=== PATIENT | female | born 1995 | race Caucasian/White ===

== ENCOUNTER 2018-01-15 07:58 | Emergency (ER) | payer BC, OTHER ==
[2018-01-15 08:05] VITALS: BP 116/72; PULSE 66; TEMP 98.1; BMI 23.4
--- NOTE | 2018-01-15 08:56 | PDOC ---
History of Present Illness - General Chief Complaint: Cold Symptoms Stated Complaint: DIFFICULTY BREATHING,COUGH Time Seen by Provider: 01/15/18 08:25 - History of Present Illness Initial Comments: 01/15/18 08:41 CHIEF COMPLAINT: cough HISTORY OF PRESENT ILLNESS: 22 yo F with no significant PMH presents to ED with cough, congestion, runny nose x 5 days. Patient states she has a history of "sinus problems" and has had pneumonia in the past. Patient denies any fever, vomiting or diarrhea, but reports "coughing up a lot of dark phlegm." No recent travel or sick contacts. PAST MEDICAL HISTORY: Denies past medical history FAMILY HISTORY: Denies SOCIAL HISTORY:Denies tobacco, alcohol, illicit drug use. SURGICAL HISTORY: Denies ALLERGIES: No known drug allergies REVIEW OF SYSTEMS as per HPI PHYSICAL EXAM General Appearance: Well-appearing, appropriately dressed. No apparent distress. HEENT: Erythematous oropharynx. EOMI, PERRLA, normal voice, TMs normal. No conjunctival pallor. No photophobia, scleral icterus. Neck: Supple. Trachea midline. No tenderness, rigidity, carotid bruit, stridor , lymphadenopathy, or thyromegaly. Respiratory/Chest: Lungs CTAB. Cardiovascular: RRR. S1, S2. Gastrointestinal/Abdominal: Normal bowel sounds. Abdomen soft, non-distended. No tenderness or rebound tenderness. No organomegaly, pulsatile mass, guarding , hernia, hepatomegaly, splenomegaly. Musculoskeletal/Extremities: Normal inspection. FROM of all extremities, normal capillary refill. Pelvis Stable. No CVA tenderness. No tenderness to extremities, pedal edema, swelling, erythema or deformity. Integumentary: Appropriate color, dry, warm. No cyanosis, erythema, jaundice or rash Neurologic: plating foreman II-XII intact. Fully oriented, alert. Appropriate mood/affect. Motor strength 5/5. No appreciable EOM palsy, facial droop or sensory deficit. Past History - Past Medical History Allergies/Adverse Reactions: Allergies Allergy/AdvReac Type Severity Reaction Status Date / Time No Known Allergies Allergy Verified 01/15/18 08:01 Home Medications: Ambulatory Orders Azithromycin [Zithromax 250mg Tablets -] 250 mg PO UTDICT #6 tab 01/15/18 Benzonatate [Tessalon Pearls -] 100 mg PO TID PRN #21 capsule 03/02/18 Pseudoephedrine HCl [Pseudoephedrine ER] 120 mg PO BID PRN #14 tablet.er COPD: No DVT: No Dementia: No - Surgical History Abdominal Surgery: No Cardiac Surgery: No - Immunization History Immunization Up to Date: Yes - Suicide/Smoking/Psychosocial Hx Smoking History: Never smoked Number of Cigarettes Smoked Daily: 3 Information on smoking cessation initiated: No Hx Alcohol Use: No Drug/Substance Use Hx: No Substance Use Type: None *Physical Exam - Vital Signs Last Vital Signs Temp Pulse Resp BP Pulse Ox 98.1 F 66 17 116/72 100 01/15/18 08:02 01/15/18 08:02 01/15/18 08:02 01/15/18 08:02 01/15/18 08:02 Medical Decision Making - Medical Decision Making 01/15/18 08:44 22 yo F with no significant PMH presents to ED with cough, congestion, runny nose x 5 days. *DC/Admit/Observation/Transfer Diagnosis at time of Disposition: Bronchitis - Discharge Dispostion Disposition: HOME Condition at time of disposition: Stable Admit: No - Prescriptions Prescriptions: Azithromycin [Zithromax 250mg Tablets -] 250 mg PO UTDICT #6 tab Benzonatate [Tessalon Pearls -] 100 mg PO TID PRN #21 capsule PRN Reason: Cough Pseudoephedrine HCl [Pseudoephedrine ER] 120 mg PO BID PRN #14 tablet.er PRN Reason: congestion - Referrals - Patient Instructions Printed Discharge Instructions: DI for Acute Bronchitis Additional Instructions: Please take medications as prescribed. Follow up with your primary care doctor if symptoms persist past 5-7 days. If you develop any fever, vomiting, diarrhea , or any new or worsening symptoms, please return to the ER. - Post Discharge Activity
== END 2018-01-15 09:01 | disposition home or self-care (01) ==
LOC: JERFT 07:58
DX: J40 Bronchitis, not specified as acute or chronic (principal)
CPT/HCPCS: 99281-25

== ENCOUNTER 2018-03-17 20:37 | Emergency (ER) | payer OTHER ==
--- NOTE | 2018-03-17 20:48 | PDOC ---
Rapid Medical Evaluation Chief Complaint: Pain Time Seen by Provider: 03/17/18 20:47 Medical Evaluation: Allergies Allergy/AdvReac Type Severity Reaction Status Date / Time No Known Allergies Allergy Verified 01/15/18 08:01 c/o " i am having pain by my pancreas. " left lower quadrant pain x 1 day. pain has been on and off x 1 year. last BM soft stool yesterday. LMP . O: patient alert ox3. A; left lower quadrant abdominal pain P: ua, urine , Abdominal xray patient to the ER for further management. 03/17/18 20:52
[2018-03-17 20:55] VITALS: BP 112/63; PULSE 71; TEMP 97.3; BMI 23.4
--- NOTE | 2018-03-17 22:02 | PDOC ---
History of Present Illness - General History Source: Patient, Old Records Exam Limitations: No Limitations - History of Present Illness Initial Comments: 03/17/18 22:43 The patient is a 22 year old female with no significant past medical history who presents to the emergency department with left lower quadrant pain for 2 days. The patient describes her pain as intermittent without alleviating or exacerbating factors. She denies any vaginal bleeding, vaginal discharge, or dysuria. The patients last menstrual period was normal. She states that she is not . <Jose Renteria - Last Filed: 03/17/18 22:43> - General History Source: Patient <Antoni Quarles - Last Filed: 03/18/18 19:55> - General Chief Complaint: Pain Stated Complaint: ABDOMINAL PAIN Time Seen by Provider: 03/17/18 20:47 Past History <MyraJose - Last Filed: 03/17/18 22:43> - Past Medical History COPD: No DVT: No Dementia: No - Surgical History Abdominal Surgery: No Cardiac Surgery: No - Immunization History Immunization Up to Date: Yes - Suicide/Smoking/Psychosocial Hx Smoking History: Never smoked Have you smoked in the past 12 months: No Number of Cigarettes Smoked Daily: 3 Information on smoking cessation initiated: No Hx Alcohol Use: No Drug/Substance Use Hx: Yes Substance Use Type: None <WilliamAria woodan - Last Filed: 03/18/18 19:55> - Past Medical History Allergies/Adverse Reactions: Allergies Allergy/AdvReac Type Severity Reaction Status Date / Time No Known Allergies Allergy Verified 01/15/18 08:01 Home Medications: Ambulatory Orders Azithromycin [Zithromax 250mg Tablets -] 250 mg PO UTDICT #6 tab 01/15/18 Benzonatate [Tessalon Pearls -] 100 mg PO TID PRN #21 capsule 01/15/18 Pseudoephedrine HCl [Pseudoephedrine ER] 120 mg PO BID PRN #14 tablet.er Review of Systems - Review of Systems Able to Perform ROS?: Yes Comments:: 03/17/18 22:44 CONSTITUTIONAL: Absent: fever, no chills, no fatigue EYES: Absent: visual changes ENT: Absent: ear pain, no sore throat CARDIOVASCULAR: Absent: chest pain, no palpitations RESPIRATORY: Absent: cough, no SOB GI: (+) Left lower quadrant pain Absent: no nausea, no vomiting, no constipation, no diarrhea GENITOURINARY: Absent: dysuria, no frequency, no hematuria MUSCULOSKELETAL: Absent: back pain, no arthralgia, no myalgia SKIN: Absent: rash <Jose Renteria - Last Filed: 03/17/18 22:43> *Physical Exam - Vital Signs Last Vital Signs Temp Pulse Resp BP Pulse Ox 97.3 F L 71 18 112/63 100 03/17/18 20:49 03/17/18 20:49 03/17/18 20:49 03/17/18 20:49 03/17/18 20:49 - Physical Exam Comments: 03/17/18 22:44 GENERAL: Well-appearing, well-nourished. No apparent distress. HEENT: Normocephalic, atraumatic. PERRL, EOM intact. CARDIOVASCULAR: Normal S1, S2. Regular rate and rhythm. PULMONARY: Clear to auscultation bilaterally. ABDOMEN: Soft, non-distended, non-tender. EXTREMITIES: Normal ROM in all four extremities. No gross deformities. SKIN: Warm, dry. No rash NEUROLOGICAL: No focal neurological deficits. <Jose Renteria - Last Filed: 03/17/18 22:43> - Vital Signs Last Vital Signs Temp Pulse Resp BP Pulse Ox 97.3 F L 71 18 112/63 100 03/17/18 20:49 03/17/18 20:49 03/17/18 20:49 03/17/18 20:49 03/17/18 20:49 <Antoni Quarles - Last Filed: 03/18/18 19:55> ED Treatment Course - ADDITIONAL ORDERS Additional order review: Laboratory Results 03/17/18 22:00 Urine Color Ltyellow Urine Appearance Clear Urine pH 5.0 Ur Specific [place] 1.025 Urine Protein Negative Urine Glucose (UA) Negative Urine Ketones Negative Urine Blood Negative Urine Nitrite Negative Urine Bilirubin Negative Urine Urobilinogen Negative Ur Leukocyte Esterase Negative Urine HCG, Qual Negative <Jose Renteria - Last Filed: 03/17/18 22:43> - RADIOLOGY Radiology Studies Ordered: Category Date Time Status TRANSVAGINAL ULTRASOUND US [US] Stat Ultrasound 03/17/18 22:01 Ordered <Antoni Quarles - Last Filed: 03/18/18 19:55> Medical Decision Making - Medical Decision Making 03/18/18 19:55 Dr. Quarles: The scribe's documentation has been prepared under my direction and personally reviewed by me in its entirery. I confirm that the note above accurately reflects all work, treatment, procedures, and medical decision making performed by me. <Antoni Quarles - Last Filed: 03/18/18 19:55> *DC/Admit/Observation/Transfer - Attestations Scribe Attestion: 03/17/18 22:44 Documentation prepared by Jose Renteria, acting as director medical science for Antoni Quarles DO. <Jose Renteria - Last Filed: 03/17/18 22:43> - Discharge Dispostion Admit: No <Antoni Quarles - Last Filed: 03/18/18 19:55> Diagnosis at time of Disposition: Abdominal pain Qualifiers: Abdominal location: left lower quadrant Qualified Code(s): R10.32 - Left lower quadrant pain - Discharge Dispostion Disposition: HOME Condition at time of disposition: Stable - Referrals Referrals: Nay Ribeiro MD [Staff Physician] - Anna Norton MD [Staff Physician] - - Patient Instructions Printed Discharge Instructions: DI for Abdominal Pain-Adult Additional Instructions: Pleas follow up with your doctor or the doctors provided to you are needed.
[2018-03-17 22:21] LABS: HCG,QUALITATIVE URINE NEGATIVE
[2018-03-17 22:36] LABS: URINE APPEARANCE CLEAR; URINE BILIRUBIN NEGATIVE (<2.0 mg/dL); URINE BLOOD NEGATIVE (NEGATIVE); URINE COLOR LTYELLOW; URINE GLUCOSE (UA) NEGATIVE (NEGATIVE); URINE KETONE NEGATIVE (NEGATIVE); URINE LEUK ESTERASE NEGATIVE (NEGATIVE); URINE NITRITE NEGATIVE (NEGATIVE); URINE PROTEIN NEGATIVE (NEGATIVE); URINE UROBILINOGEN NEGATIVE mg/dL (0.2-1.0)
== END 2018-03-17 23:50 | disposition home or self-care (01) ==
LOC: JER 20:37
DX: R10.32 Left lower quadrant pain (principal)
CPT/HCPCS: 76830-TC; 81003; 84703; 99281-25

== ENCOUNTER 2018-09-20 11:54 | Emergency (ER) | payer BC, OTHER ==
[2018-09-20 12:08] VITALS: TEMP 97.9; BMI 22.4
--- NOTE | 2018-09-20 13:52 | PDOC ---
Attending Attestation - HPI HPI: 09/20/18 17:33 The patient is a 22 year old female,[id number] with no significant past medical history, who presents to the emergency department with bright red bleeding with some clots vaginally and associated left lower left lower abdominal and back pain today after having a positive at-home test 4 days ago. She states she believes herself to be at most 10 days because she had unprotected intercourse 10 days prior to taking the at-home test. She was prompted to take the at-home test because she felt lightheaded and very tired. She states the bleeding is more than a normal period and has remained constant throughout the day. LMP was over 4 weeks ago, but within the past 2 months. The patient denies chest pain, shortness of breath, headache and dizziness. The patient denies fever, chills, nausea, vomit, diarrhea and constipation. The patient denies dysuria, frequency, urgenc. Allergies: NKDA - Physicial Exam PE: 09/20/18 17:33 "GENERAL: The patient is awake, alert, and fully oriented, Nontoxic - in no acute distress. HEAD: Normocephalic, atraumatic. EYES: extraocular movements intact, sclera anicteric, conjunctiva clear. ENT: Normal voice, Moist mucous membranes. NECK: Normal range of motion, supple LUNGS: Breath sounds equal, clear to auscultation bilaterally. No wheezes, no rhonchi, no rales. HEART: Regular rate and rhythm, without murmur, rub or gallop. ABDOMEN: (+) mild lower abdominal discomfort on palpation. Soft, No guarding, no rebound.No CVA tenderness EXTREMITIES: Normal range of motion, no edema. No cyanosis. No erythema, or tenderness. NEUROLOGICAL: No facial assymetry, Normal speech, PSYCH: Normal mood, normal affect. SKIN: Warm, Dry, normal turgor," - Medical Decision Making 09/20/18 17:34 Documentation prepared by Amita Dimas, acting as internist medical doctor md for Elia Martinez MD <Amita Dimas - Last Filed: 09/20/18 17:33> - Resident Resident Name: Srinivasa Hoang - ED Attending Attestation I have performed the following: I have examined & evaluated the patient, The case was reviewed & discussed with the resident, I agree w/resident's findings & plan, Exceptions are as noted - Medical Decision Making 09/20/18 13:50 22y F [id number] presents with lower abd pain and back pain and vaginal spotting, + test 2 days ago. no fever/chills, n/v, diarrhea, cp, sob LMP approx 1 month ago 09/20/18 17:34 beta negative, US negative for IUP will dc with pmd/car repairer fu return precautions were discussed A portion of this note was documented by scribe services under my direction. I have reviewed the details of the note, within reason, and agree with the documentation with the following case summary and management plan written by me <Elia Martinez - Last Filed: 09/20/18 17:37>
[2018-09-20 14:05] LABS: URINE APPEARANCE SLCLOUDY; URINE BILIRUBIN NEGATIVE (<2.0 mg/dL); URINE COLOR LTYELLOW; URINE GLUCOSE (UA) NEGATIVE (NEGATIVE); URINE KETONE NEGATIVE (NEGATIVE); URINE LEUK ESTERASE TRACE (NEGATIVE); URINE NITRITE NEGATIVE (NEGATIVE); URINE PROTEIN NEGATIVE (NEGATIVE); URINE UROBILINOGEN NEGATIVE mg/dL (0.2-1.0)
[2018-09-20 14:07] LABS: BASO % 0.6 % (0-2.0); EOS % 2.9 % (0-4.5); HEMATOCRIT 42.9 % (32.4-45.2); HEMOGLOBIN 14.4 GM/dL (10.7-15.3); LYMPH % 23.2 % (8-40); MCHC 33.5 g/dl (32.0-36.0); MEAN CELL VOLUME 89.5 fl (80-96); MEAN PLT VOLUME 7.7 fl (7.5-11.1); MONO % 5.5 % (3.8-10.2); NEUT % 67.8 % (42.8-82.8); PLATELET COUNT 242 K/MM3 (134-434); RBC 4.79 M/mm3 (3.60-5.2); RDW 12.5 % (11.6-15.6); WHITE BLOOD COUNT 8.9 K/mm3 (4.0-10.0)
[2018-09-20 14:28] LABS: EPI CELLS RARE /HPF (FEW); YEAST RARE
[2018-09-20 14:41] LABS: ALBUMIN 4.3 g/dl (3.4-5.0); ALK PHOS 60 U/L (45-117); ANION GAP 4 MMOL/L (8-16); BILIRUBIN,TOTAL 1.1 mg/dL (0.2-1); BLOOD UREA NITROGEN 15 mg/dL (7-18); CHLORIDE 104 mmol/L (98-107); CO2 30 mmol/L (21-32); CREATININE 0.7 mg/dL (0.55-1.3); GLUCOSE,RANDOM 87 mg/dL (74-106); POTASSIUM 4.3 mmol/L (3.5-5.1); SGOT/AST 16 U/L (15-37); SGPT/ALT 19 U/L (13-61); SODIUM 138 mmol/L (136-145); TOT PROT 7.2 g/dl (6.4-8.2)
--- NOTE | 2018-09-20 15:05 | PDOC ---
History of Present Illness - General Chief Complaint: Vaginal Bleeding Stated Complaint: VAGINAL BLEEDING () Time Seen by Provider: 09/20/18 13:15 Past History - Past Medical History Allergies/Adverse Reactions: Allergies Allergy/AdvReac Type Severity Reaction Status Date / Time No Known Allergies Allergy Verified 09/20/18 12:04 Home Medications: Ambulatory Orders NK [No Known Home Medication] 09/20/18 COPD: No DVT: No Dementia: No - Surgical History Abdominal Surgery: No Cardiac Surgery: No - Immunization History Immunization Up to Date: Yes - Suicide/Smoking/Psychosocial Hx Smoking History: Current some day smoker Have you smoked in the past 12 months: No Number of Cigarettes Smoked Daily: 3 Information on smoking cessation initiated: No Hx Alcohol Use: No Drug/Substance Use Hx: No Substance Use Type: None *Physical Exam - Vital Signs Last Vital Signs Temp Pulse Resp BP Pulse Ox 97.9 F 73 18 115/73 98 09/20/18 12:05 09/20/18 12:05 09/20/18 12:05 09/20/18 12:05 09/20/18 12:05 ED Treatment Course - LABORATORY CBC & Chemistry Diagram: 09/20/18 13:59 09/20/18 13:59 - ADDITIONAL ORDERS Additional order review: Laboratory Results 09/20/18 09/20/18 13:59 13:53 Sodium 138 Potassium 4.3 Chloride 104 Carbon Dioxide 30 Anion Gap 4 L BUN 15 Creatinine 0.7 Creat Clearance w eGFR > 60 Random Glucose 87 Calcium 9.0 Total Bilirubin 1.1 H AST 16 ALT 19 Alkaline Phosphatase 60 Total Protein 7.2 Albumin 4.3 Beta HCG, Quant < 1.0 Urine Color Ltyellow Urine Appearance Slcloudy Urine pH 6.0 Ur Specific [place] 1.008 L Urine Protein Negative Urine Glucose (UA) Negative Urine Ketones Negative Urine Blood 3+ H Urine Nitrite Negative Urine Bilirubin Negative Urine Urobilinogen Negative Ur Leukocyte Esterase Trace Urine WBC (Auto) 91 Urine RBC (Auto) 408 Ur Epithelial Cells Rare Urine Yeast Rare 09/20/18 13:59 RBC 4.79 MCV 89.5 MCHC 33.5 RDW 12.5 MPV 7.7 Neutrophils % 67.8 Lymphocytes % 23.2 Monocytes % 5.5 Eosinophils % 2.9 Basophils % 0.6 - RADIOLOGY Radiology Studies Ordered: Category Date Time Status TRANSVAGINAL US PREG [US] Stat Ultrasound 09/20/18 13:35 Ordered *DC/Admit/Observation/Transfer Diagnosis at time of Disposition: Vaginal bleeding - Discharge Dispostion Disposition: HOME Condition at time of disposition: Good Decision to Admit order: No - Referrals Referrals: Nils Child MD [Staff Physician] - - Patient Instructions Printed Discharge Instructions: DI for Vaginal Bleeding Additional Instructions: Follow up with your OBGYN within the next 3 days. You will need to call to make an appointment. Even though you receive your care through the [place], I have also included a referral to a [facility], Dr. Child. His office number is included in this packet. I have attached copies of your results from today's visit to this packet. Please take these to your follow up appointments so your doctor can review them. Go to the nearest emergency department if your condition worsens or you feel like you need additional emergency evaluation. Watch for signs of heavy vaginal bleeding; this would be about 2 feminine pads per hour. Print Language: MICRONESIAN - Post Discharge Activity
[2018-09-20 18:04] VITALS: BP 111/75; PULSE 75
== END 2018-09-20 18:13 | disposition home or self-care (01) ==
LOC: JER 11:54
DX: N93.8 Other specified abnormal uterine and vaginal bleeding (principal)
CPT/HCPCS: 36415; 76817-TC; 80053; 81003; 81015; 84702; 85025; 86850; 86900; 86901; 87086; 99282-25

== ENCOUNTER 2018-09-22 09:46 | Emergency (ER) | payer BC, OTHER ==
[2018-09-22 09:50] VITALS: BMI 22.4
--- NOTE | 2018-09-22 10:07 | PDOC ---
History of Present Illness - History of Present Illness Initial Comments: 09/22/18 11:22 The patient is a 22-year-old female, , with no significant past medical history presents to the emergency department with back pain, abdominal pain and vaginal bleeding. The patient presents with 2 days of vaginal bleeding with L. lower back and L. lower abdominal pain, without modifying factor that alleviates the pain. The patient reports the pain hasnt changed or worsened acutely, but she had noticed a slight decrease in vaginal bleeding, but shes passing clots. The patient reports following up at the ED on 08/20/2018, for the similar complaint, during the visit blood work and Transvaginal u/s was done. The patient blood work came back negative for HCG, and u/s report read negative intrauterine gestation. The patient reports during the visit she was informed by the doctor that her cervix was open and she may have passed something. The patient reports 2 weeks prior she took 2 home test, which read positive, states at the time she felt and her body was changing states her boyfriend noticed a difference. The patient reports currently, she doesnt feel . The patient reports she was informed in the past that her left ovaries were bigger compared to the R. The patient reports having a workup with an unremarkable result. The patient denies hematuria or dysuria. The patient denies prior live births or surgeries. Denies fever, chills, diarrhea, or constipation LMP: The patient reports at baseline she had irregular menses, states she was late this thursday by 4 weeks. Allergies: NKA Social history: No past or present use of tobacco, alcohol, or recreational drug use. PCP: None reported <Shea Rob - Last Filed: 09/22/18 11:23> - General History Source: Patient Exam Limitations: No Limitations <Shahnaz Lora - Last Filed: 09/22/18 12:13> - General Chief Complaint: Vaginal Sxs Stated Complaint: VAGINAL BLEEDING Time Seen by Provider: 09/22/18 10:05 Past History <hSea Rob - Last Filed: 09/22/18 11:23> - Past Medical History COPD: No CHF: No DVT: No Dementia: No - Surgical History Abdominal Surgery: No Cardiac Surgery: No - Immunization History Immunization Up to Date: Yes - Suicide/Smoking/Psychosocial Hx Smoking History: Never smoked Have you smoked in the past 12 months: No Number of Cigarettes Smoked Daily: 3 Information on smoking cessation initiated: No 'Breaking Loose' booklet given: 09/22/18 Hx Alcohol Use: No Drug/Substance Use Hx: No Substance Use Type: None <Shahnaz Lora - Last Filed: 09/22/18 12:13> - Past Medical History Allergies/Adverse Reactions: Allergies Allergy/AdvReac Type Severity Reaction Status Date / Time No Known Allergies Allergy Verified 09/22/18 09:52 Home Medications: Ambulatory Orders NK [No Known Home Medication] 09/20/18 Review of Systems - Review of Systems Comments:: 09/22/18 11:22 GENERAL/CONSTITUTIONAL: No fever or chills. No weakness. HEAD, EYES, EARS, NOSE AND THROAT: No change in vision. No ear pain or discharge. No sore throat. CARDIOVASCULAR: No chest pain or shortness of breath. RESPIRATORY: No cough, wheezing, or hemoptysis. GASTROINTESTINAL: +LLQ pain. No nausea, vomiting, diarrhea or constipation. GENITOURINARY: +vaginal bleeding. No dysuria, frequency, or change in urination. MUSCULOSKELETAL: +L. lower back pain. No joint or muscle swelling or pain. No neck pain. SKIN: No rash NEUROLOGIC: No headache, vertigo, loss of consciousness, or change in strength/ sensation. ENDOCRINE: No increased thirst. No abnormal weight change. HEMATOLOGIC/LYMPHATIC: No anemia, easy bleeding, or history of blood clots. ALLERGIC/IMMUNOLOGIC: No hives or skin allergy. <Shea Rob - Last Filed: 09/22/18 11:23> *Physical Exam - Vital Signs Last Vital Signs Temp Pulse Resp BP Pulse Ox 97.8 F 64 17 122/76 100 09/22/18 09:47 09/22/18 09:47 09/22/18 09:47 09/22/18 09:47 09/22/18 09:47 - Physical Exam Comments: 09/22/18 10:34 GENERAL: The patient is in no acute distress. HEAD: Normal with no signs of trauma. EYES: PERRLA, EOMI, sclera anicteric, conjunctiva clear. ENT: Ears normal, nares patent, oropharynx clear without exudates. Moist mucous membranes. NECK: Normal range of motion, supple, No JVD, or masses. LUNGS: Breath sounds equal, clear to auscultation bilaterally. No wheezes, and no crackles. HEART:Regular rate and rhythm, normal S1 and S2 without murmur, rub or gallop. ABDOMEN: Soft, nontender, No guarding, no rebound. No masses palpable. No CVA tenderness. EXTREMITIES: Normal range of motion, no edema. No clubbing or cyanosis. No erythema, or tenderness. NEUROLOGICAL: Cranial nerves II through XII grossly intact. Normal speech. No focal neurological deficits. MUSCULOSKELETAL: Back non-tender to palpation, no CVA tenderness SKIN: Warm, Dry, normal turgor, no rashes or lesions noted. <Shea Rob - Last Filed: 09/22/18 11:23> - Vital Signs Last Vital Signs Temp Pulse Resp BP Pulse Ox 97.8 F 64 17 122/76 100 09/22/18 09:47 09/22/18 09:47 09/22/18 09:47 09/22/18 09:47 09/22/18 09:47 <Shahnaz Lora - Last Filed: 09/22/18 12:13> ED Treatment Course - LABORATORY CBC & Chemistry Diagram: 09/22/18 10:52 <Shea Rob - Last Filed: 09/22/18 11:23> - LABORATORY CBC & Chemistry Diagram: 09/22/18 10:52 <Shahnaz Lora - Last Filed: 09/22/18 12:13> Medical Decision Making - Medical Decision Making Mrs. daniels is a 22 year-old 010 who is greater than 4 weeks status post her last menstrual period. She was seen in the emergency department 2 days ago for left lower abdominal pain as well as back pain associated with vaginal bleeding. At that time her hormone test was less than 1. Ultrasound demonstrates note portion, no intrauterine gestational sac. Patient states that her bleeding was significant, very heavy and persisted through yesterday. Today her bleeding has largely improved however she continues to have lower back pain and is very concerned about her left ovary. She returns to the ER for repeat assessment. She has not followed up with [facility]. On examination: Heart is regular, lungs are clear Lower abdomen is mildly tender to palpation, 09/22/18 11:13 Laboratory Tests 09/22/18 09/22/18 10:50 10:52 WBC 6.0 Hgb 14.1 Hct 42.5 Plt Count 239 Urine HCG, Qual Negative 09/22/18 11:19 Laboratory Tests 09/20/18 13:59 Blood Type B POSITIVE 09/22/18 11:19 Laboratory Tests 09/22/18 10:50 Urine Blood Negative Urine Nitrite Negative Ur Leukocyte Esterase Negative 09/22/18 11:46 Laboratory Tests 09/22/18 10:52 Beta HCG, Quant < 1.0 09/22/18 12:10 US negative for IUP, no ovarian masses or torsions Will discharge to home Clinical impression: dysmenorrhea, repeat presentation <Shahnaz Lora - Last Filed: 09/22/18 12:13> *DC/Admit/Observation/Transfer - Attestations Scribe Attestion: 09/22/18 10:43 Documentation prepared by Shea Rob, acting as medical logistics specialist for Shahnaz Lora MD. <Shea Rob - Last Filed: 09/22/18 11:23> - Discharge Dispostion Decision to Admit order: No <Shahnaz Lora - Last Filed: 09/22/18 12:13> Diagnosis at time of Disposition: Dysmenorrhea - Discharge Dispostion Disposition: HOME Condition at time of disposition: Stable - Referrals Referrals: Nils Child MD [Staff Physician] - - Patient Instructions Printed Discharge Instructions: DI for Vaginal Bleeding Additional Instructions: Thank you for coming in to the ER today You must follow up with a drain cleaner within 2-3 days I have given you a referral Please take Aleeve or Motrin 600mg every 8 hours for pain You can also apply a warm compress to your back / abdomen for pain control Please return to the ER with any other concerns or complaints, new symptoms, worsening symptoms. Please return to the ER with vaginal bleeding - saturating 2 pads per hour for 2 hours - Post Discharge Activity Forms/Work/School Notes: Back to Work
[2018-09-22 10:57] LABS: EOS % 2.3 % (0-4.5); HEMATOCRIT 42.5 % (32.4-45.2); HEMOGLOBIN 14.1 GM/dL (10.7-15.3); LYMPH % 28.7 % (8-40); MCHC 33.2 g/dl (32.0-36.0); MEAN CELL VOLUME 90.4 fl (80-96); MEAN PLT VOLUME 7.6 fl (7.5-11.1); MONO % 6.1 % (3.8-10.2); NEUT % 61.9 % (42.8-82.8); PLATELET COUNT 239 K/MM3 (134-434); RDW 12.9 % (11.6-15.6)
[2018-09-22 11:03] LABS: HCG,QUALITATIVE URINE Negative
[2018-09-22 11:08] LABS: URINE APPEARANCE CLEAR; URINE BILIRUBIN NEGATIVE (<2.0 mg/dL); URINE COLOR STRAW; URINE GLUCOSE (UA) NEGATIVE (NEGATIVE); URINE KETONE NEGATIVE (NEGATIVE); URINE LEUK ESTERASE NEGATIVE (NEGATIVE); URINE NITRITE NEGATIVE (NEGATIVE); URINE PROTEIN NEGATIVE (NEGATIVE); URINE UROBILINOGEN NEGATIVE mg/dL (0.2-1.0)
[2018-09-22 12:16] VITALS: BP 107/70; PULSE 75; TEMP 99.1
== END 2018-09-22 12:56 | disposition home or self-care (01) ==
LOC: JER 09:46
DX: N94.6 Dysmenorrhea, unspecified (principal)
CPT/HCPCS: 36415; 76830-TC; 81003; 84702; 84703; 85025; 87086; 99282-25

== ENCOUNTER 2019-03-14 19:40 | Emergency (ER) | payer BC, OTHER ==
[2019-03-14 20:13] VITALS: BP 109/60; PULSE 57; TEMP 98.2; BMI 23.4
[2019-03-14] MEDS ORDERED: diazePAM 5 MG TABLET PO ONE (21:09)
--- NOTE | 2019-03-14 21:11 | PDOC ---
History of Present Illness - General Chief Complaint: Psychiatric Stated Complaint: ANXIETY Time Seen by Provider: 03/14/19 20:53 - History of Present Illness Initial Comments: 03/14/19 21:08 23-year-old female without comorbidities presents for evaluation of anxiety. She states she is being evicted from her apartment because her roommate is unable to pay the bills and left her with a substantial amount of bills she cannot afford. She has no suicidal or homicidal ideation. Past History - Past Medical History Allergies/Adverse Reactions: Allergies Allergy/AdvReac Type Severity Reaction Status Date / Time No Known Allergies Allergy Verified 03/14/19 20:13 Home Medications: Ambulatory Orders NK [No Known Home Medication] 09/20/18 COPD: No CHF: No DVT: No Dementia: No Psychiatric Problems: Yes - Surgical History Abdominal Surgery: No Cardiac Surgery: No - Immunization History Immunization Up to Date: Yes - Suicide/Smoking/Psychosocial Hx Smoking History: Current some day smoker Have you smoked in the past 12 months: Yes Number of Cigarettes Smoked Daily: 3 Information on smoking cessation initiated: No 'Breaking Loose' booklet given: 09/22/18 Hx Alcohol Use: No Drug/Substance Use Hx: No Substance Use Type: None Review of Systems - Review of Systems Neurological: Yes: See HPI *Physical Exam - Vital Signs Last Vital Signs Temp Pulse Resp BP Pulse Ox 98.2 F 57 L 17 109/60 100 03/14/19 20:08 03/14/19 20:08 03/14/19 20:08 03/14/19 20:08 03/14/19 20:08 - Physical Exam Comments: 03/14/19 21:08 HEAD: NC/AT EYES: Conjuntiva clear MS: Full ROM in all joints without edema NEUROLOGIC: No gross sensory or motor deficits, NVID SKIN: Normal color and temperature no lesions or rashes Medical Decision Making - Medical Decision Making 03/14/19 21:09 A should admit to having 3 beers prior to her arrival. And smoked a cigarette still she remains anxious. I will treat her with 5 mg of Valium. Patient does not appear intoxicated and does not smell of alcohol. *DC/Admit/Observation/Transfer Diagnosis at time of Disposition: Anxiety - Discharge Dispostion Disposition: HOME Condition at time of disposition: Improved Decision to Admit order: No - Referrals Referrals: He Andrade MD [Staff Physician] - - Patient Instructions Printed Discharge Instructions: Generalized Anxiety Disorder, Anxiety Disorders , DI for Anxiety -- Adult Additional Instructions: Return to the emergency room for worsening symptoms and follow-up with psychiatry for further evaluation and treatment of your anxiety in one to 2 days. - Post Discharge Activity
[2019-03-14] MEDS ORDERED: diazePAM 5 MG TABLET ONE (21:17)
== END 2019-03-14 22:06 | disposition home or self-care (01) ==
LOC: JERFT 19:40
DX: F41.9 Anxiety disorder, unspecified (principal)
CPT/HCPCS: 99281-25